=== PATIENT | female | born 1965 | race Caucasian/White ===

== ENCOUNTER → 2016-04-24 | Outpatient (CLI) | payer BC, OTHER ==
--- NOTE | 2016-04-24 17:13 | REP ---
ULTRASOUND RIGHT BREAST: Real-time sonographic evaluation of the right breast is performed and compared to prior study of 08/17/2015. Solid nodule is again seen at 3 o'clock of the right breast. It measures 1.0 x 1.1 x 0.8 cm. It is essentially unchanged since the prior exam. Patient reports a benign biopsy since the prior exam. IMPRESSION: ACR 2 benign. Stable hypoechoic nodule 3 o'clock position right breast. Signed by Kevin Albert MD 04/25/2016 08:05 P
== END ==
LOC: M RAD 15:43
DX: N63 Unspecified lump in breast (principal)

== ENCOUNTER → 2020-08-06 | Outpatient (CLI) | payer OTHER ==
--- NOTE | 2020-08-06 12:07 | DEXAMM ---
INDICATION: M85.80 [facility] DISORDER OF BONE DENSITY AND STRUCTURE. COMPARISON: 09/26/2017, 11/02/2004. TECHNIQUE: Bone density was measured using dual-energy x-ray absorptiometry (DEXA). FINDINGS: AP SPINE L1-L4 BMD 1.029 g/cm2 Young Adult T-Score -1.3 Age Matched Z-Score -0.5. LT FEMUR, TOTAL BMD 1.021 g/cm2 Young Adult T-Score 0.1 Age Matched Z-Score 0.8. LT NECK BMD 0.893 g/cm2 Young Adult T-Score -1.0 Age Matched Z-Score 0.0. RT FEMUR, TOTAL BMD 0.968 g/cm2 Young Adult T-Score -0.3 Age Matched Z-Score 0.4. RT NECK BMD 0.864 g/cm2 Young Adult T-Score -1.2 Age Matched Z-Score -0.2. IMPRESSION: There is low bone density of the spine. There is low bone density of the left hip. There is low bone density of the right hip. The density of the spine has decreased 5.5% since the initial exam on 11/02/2004. The density of the spine decreased 6.6% since most recent exam on 09/26/2017. The density of the left hip has decreased 0.3% since initial exam on 11/02/2004. The density of the left hip has decreased 2.0% since most recent exam on 09/26/2017. The density of the right hip has decreased 2.4% since the initial exam on 11/02/2004. The density of the right hip has decreased 4.3% since the most recent exam on 09/26/2017. FOLLOW-UP: Recommendation for the next bone density exam: 2 years. <Electronically signed by Kevin Albert > 08/06/20 [id number]
== END ==
LOC: M WHC 11:28
PROVIDERS: ATTEND Specialist
DX: M85.88 Other specified disorders of bone density and structure, other site (principal); M85.851 Other specified disorders of bone density and structure, right thigh; M85.852 Other specified disorders of bone density and structure, left thigh

== ENCOUNTER → 2021-08-01 | Outpatient (CLI) | payer OTHER ==
[~2021-08-01] MED LIST: PROHANCE 279.3MG/ML 15ML VIAL ONE; PROHANCE 279.3MG/ML 5ML VIAL ONE
== END ==
LOC: M PLAIMG 14:45
DX: R27.0 Ataxia, unspecified (principal); R42 Dizziness and giddiness; I10 Essential (primary) hypertension
CPT/HCPCS: 70553; A9576

== ENCOUNTER → 2022-02-08 | Outpatient (CLI) | payer OTHER | LOC: M RAD 13:44 | PROVIDERS: ATTEND Family Medicine | DX: E04.9 Nontoxic goiter, unspecified (principal) ==

== ENCOUNTER → 2023-09-05 | Outpatient (CLI) | payer BC ==
[~2023-09-05] MED LIST changes: +GASTROGRAFIN SOLUTION 30ML As Ordered ONE; +ISOVUE-370 76% 100ML VIAL As Ordered ONE; -PROHANCE 279.3MG/ML 15ML VIAL ONE; -PROHANCE 279.3MG/ML 5ML VIAL ONE
== END ==
LOC: M RAD 14:10
PROVIDERS: ATTEND Family Medicine
DX: R10.12 Left upper quadrant pain (principal)
CPT/HCPCS: 74177; Q9963; Q9967

== ENCOUNTER → 2023-09-11 | Outpatient (CLI) | payer BC | LOC: M RAD 07:05 | PROVIDERS: ATTEND Family Medicine | DX: R10.11 Right upper quadrant pain (principal); R19.4 Change in bowel habit ==

== ENCOUNTER 2024-03-03 06:42 | Day surgery (SDC) | payer BC ==
[~2024-03-03] VITALS: Ht 167.6 cm; Wt 86.2 kg
[~2024-03-03 06:42] MED LIST changes: -GASTROGRAFIN SOLUTION 30ML As Ordered ONE; -ISOVUE-370 76% 100ML VIAL As Ordered ONE; +LEVO50TA5 PO; +PANT40TA29 PO; +PRAV20TA2 PO; +PROBCAP14 PO; +SPIR50TA4 PO; +THERTAB52 PO; +UBIQ200C3 PO
[2024-03-03] MEDS ORDERED: SIMETHICONE 40MG/0.6ML DROPS 30ML As Ordered ONE (06:51)
[2024-03-03] MEDS ORDERED: propofoL 200 MG/20 ML VIAL As Ordered ONE (07:05)
[2024-03-03] MEDS ORDERED: LIDOCAINE 2% 100MG/5ML SDV (FOR ANES.) As Ordered ONE (07:05)
[2024-03-03] MEDS ORDERED: dexmedeTOMIDine (4MCG/ML)200MCG/50ML BTL (PRECEDEX) As Ordered ONE (07:05)
[2024-03-03 08:09] VITALS: TEMP 97.6
[2024-03-03 08:25] VITALS: BP 115/73; O2SAT 97
== END 2024-03-03 08:32 | disposition home or self-care (01) ==
LOC: M OPP 06:42
PROVIDERS: ATTEND Internal Medicine Gastroenterology
DX: Z12.11 Encounter for screening for malignant neoplasm of colon (principal); K64.0 First degree hemorrhoids; R10.12 Left upper quadrant pain; R12 Heartburn; K22.89 Other specified disease of esophagus; Z88.8 Allergy status to other drugs, medicaments and biological substances; Z79.899 Other long term (current) drug therapy